=== PATIENT | male | born 1950 | race Caucasian/White ===

== ENCOUNTER 2023-08-13 21:06 | Inpatient (IN) | payer OTHER ==
[~2023-08-13] VITALS: Ht 177.8 cm; Wt 88.5 kg
[2023-08-13 01:35] VITALS: BP 154/56; PULSE 87; RESP 22; TEMP 98; O2SAT 99
[2023-08-13 21:10] VITALS: BP 153/61; PULSE 103; RESP 30; TEMP 98.6; O2SAT 96
[2023-08-13 21:13] VITALS: BP 146/52; PULSE 98; RESP 18; O2SAT 100; O2SAT 99
[2023-08-13 21:43] LABS: BASOPHILS % (AUTO) 0.5 % (0.0-2.0); EOSINOPHILS # (AUTO) 0.2 K/uL (0-0.4); HEMATOCRIT 29.1 % (36-52); HEMOGLOBIN 9.3 g/dL (12.0-18.0); LYMPHOCYTES # (AUTO) 0.4 K/uL (2.0-11.5); LYMPHOCYTES % (AUTO) 6.4 % (20.5-51.1); MEAN CORPUSCULAR HEMOGLOBIN 26 pg (27-31); MEAN CORPUSCULAR HGB CONC 32 g/dL (33-37); MEAN CORPUSCULAR VOLUME 82.9 fL (80-94); MONOCYTES # (AUTO) 0.3 K/uL (0.8-1.0); MONOCYTES % (AUTO) 5.6 % (1.7-9.3); NEUTROPHILS # (AUTO) 5.2 K/uL (1.8-7.7); NEUTROPHILS % (AUTO) 84.5 % (42.2-75.2); PLATELET COUNT (AUTO) 199 K/uL (140-450); RED BLOOD CELL COUNT(AUTO) 3.51 MIL/uL (4.20-6.10); RED CELL DISTRIBUTION WIDTH 20.6 % (11.6-13.7); WHITE BLOOD COUNT (AUTO) 6.2 K/uL (4.8-10.8)
[2023-08-13 21:50] LABS: ANION GAP 16.3 (8-16); CALCIUM 8.8 mg/dL (8.5-10.1); CARBON DIOXIDE 23.9 mmol/L (21-32); CHLORIDE 107 mmol/L (98-107); CREATININE 2.7 mg/dL (0.6-1.3); GLUCOSE 222 mg/dL (74-106); POTASSIUM 4.2 mmol/L (3.5-5.1); SODIUM SERUM 143 mmol/L (136-145)
[2023-08-13 21:52] LABS: UREA NITROGEN, BLOOD 77 mg/dL (7-18)
[2023-08-13 22:03] LABS: ALANINE AMINOTRANSFERASE 172 U/L (12-78); ALBUMIN 2.7 g/dL (3.4-5.0); ALKALINE PHOSPHATASE 119 U/L (50-136); ASPARTATE AMINOTRANSFERASE 60 U/L (15-37); BILIRUBIN,DIRECT 0.5 mg/dL (0.0-0.3); TOTAL BILIRUBIN 1.1 mg/dL (0.0-1.0); TOTAL PROTEIN, SERUM 7.2 g/dL (6.4-8.2)
[2023-08-13 22:22] LABS: FLU A ANTIGEN negative (NEGATIVE); FLU B ANTIGEN NEGATIVE (NEGATIVE)
[2023-08-13 22:54] LABS: BLOOD GAS PCO2 38.3 mmHg (35-45); BLOOD GAS PH 7.417 (7.35-7.45); BLOOD GAS PO2 148.2 mmHg (75-100)
[2023-08-13 22:55] LABS: BLOOD GAS BASE EXCESS -0.3 mmol/L (-2.0-2.0); BLOOD GAS HCO3 24.1 mmol/L (22-26); BLOOD GAS O2 SAT% 99.3 % (92.0-98.5)
[2023-08-13 22:59] VITALS: BP 120/49; PULSE 90; O2SAT 100
[2023-08-13] MEDS ORDERED: KCL 20 MEQ IN 100 mL PREMIX 200 ML IV PRN (23:35)
[2023-08-13] MEDS ORDERED: ACETAMINOPHEN 325 MG TAB PO PRN (23:35)
[2023-08-13] MEDS ORDERED: ONDANSETRON 4 MG/2 ML VIAL IVP PRN (23:35)
[2023-08-13] MEDS: FUROSEMIDE 40 MG/4 ML VIAL IVP SCH (23:49)
[2023-08-14] VITALS (8 sets, daily range): BP systolic 90–120; BP diastolic 41–60; PULSE 60–90; RESP 18–22; TEMP 96.9–98.1; O2SAT 96–99
[2023-08-14] MEDS ORDERED: GABA300C PO (00:39)
[2023-08-14] MEDS ORDERED: NITR0.4T2 SL (00:39)
[2023-08-14] MEDS ORDERED: FAMO-90 PO (00:39)
[2023-08-14] MEDS ORDERED: MELO-176 PO (00:39)
[2023-08-14] MEDS ORDERED: ASCO500T95 PO (00:39)
[2023-08-14] MEDS ORDERED: ACET-5636 PO (00:39)
[2023-08-14] MEDS ORDERED: FERR325E14 PO (00:39)
[2023-08-14] MEDS ORDERED: ATOR40TA PO (00:39)
[2023-08-14] MEDS ORDERED: RANO500T7 PO (00:39)
[2023-08-14] MEDS ORDERED: CYCL-711 PO (00:39)
[2023-08-14] MEDS ORDERED: METO50TE2 PO (00:39)
[2023-08-14] MEDS ORDERED: FURO-570 PO (00:39)
[2023-08-14] MEDS ORDERED: TAMS0.4C96 PO (00:39)
[2023-08-14] MEDS ORDERED: ASPI-1822 PO (00:39)
[2023-08-14] MEDS ORDERED: LACT10SO93 PO (00:39)
[2023-08-14] MEDS ORDERED: POTA10CA PO (00:39)
[2023-08-14] MEDS ORDERED: AMLO5TAB PO (00:39)
[2023-08-14] MEDS ORDERED: FLUO10CA21 PO (00:39)
[2023-08-14 07:09] LABS: BASOPHILS % (AUTO) 0.3 % (0.0-2.0); EOSINOPHILS # (AUTO) 0.1 K/uL (0-0.4); HEMOGLOBIN 8.2 g/dL (12.0-18.0); LYMPHOCYTES # (AUTO) 0.6 K/uL (2.0-11.5); LYMPHOCYTES % (AUTO) 6.4 % (20.5-51.1); MEAN CORPUSCULAR HEMOGLOBIN 26 pg (27-31); MEAN CORPUSCULAR HGB CONC 32 g/dL (33-37); MEAN CORPUSCULAR VOLUME 82.6 fL (80-94); MONOCYTES # (AUTO) 0.6 K/uL (0.8-1.0); MONOCYTES % (AUTO) 6.4 % (1.7-9.3); NEUTROPHILS % (AUTO) 85.9 % (42.2-75.2); PLATELET COUNT (AUTO) 175 K/uL (140-450); RED BLOOD CELL COUNT(AUTO) 3.14 MIL/uL (4.20-6.10); RED CELL DISTRIBUTION WIDTH 20.1 % (11.6-13.7); WHITE BLOOD COUNT (AUTO) 9.4 K/uL (4.8-10.8)
[2023-08-14 07:28] LABS: ANION GAP 13.2 (8-16); CALCIUM 8.7 mg/dL (8.5-10.1); CARBON DIOXIDE 27.6 mmol/L (21-32); CHLORIDE 106 mmol/L (98-107); CREATININE 2.6 mg/dL (0.6-1.3); GLUCOSE 165 mg/dL (74-106); POTASSIUM 3.8 mmol/L (3.5-5.1); SODIUM SERUM 143 mmol/L (136-145)
[2023-08-14 07:30] LABS: UREA NITROGEN, BLOOD 76 mg/dL (7-18)
[2023-08-14] MEDS ORDERED: DEXTROSE 50% 50 ML SYR IVP PRN (08:35)
[2023-08-14] MEDS ORDERED: INSULIN LISPRO SLIDING SCALE 100 UNITS/ML VIAL SUBQ PRN (08:35)
[2023-08-14] MEDS ORDERED: NITROGLYCERIN 0.4 MG TAB SL PRN (08:35)
[2023-08-14] MEDS: FUROSEMIDE 40 MG/4 ML VIAL IVP SCH ×2 (08:44→14:20)
[2023-08-14] MEDS: RANOLAZINE 500 MG TER PO SCH ×2 (09:00→22:15)
[2023-08-14] MEDS: TAMSULOSIN 0.4 MG CAP PO SCH (10:10)
[2023-08-14] MEDS: FERROUS SULFATE 325 MG TABEC PO SCH (10:11)
[2023-08-14] MEDS: amLODIPine 5 MG TAB PO SCH (10:11)
[2023-08-14] MEDS: FLUoxetine 10 MG CAP PO SCH (10:11)
[2023-08-14] MEDS: ASPIRIN 81 MG TAB.CHEW PO SCH (10:11)
[2023-08-14] MEDS: METOPROLOL SUCCINATE 50 MG TABER PO SCH (10:11)
[2023-08-14] MEDS: BLOOD GLUCOSE MONITORING 1 DEV DEV FS SCH (11:52)
[2023-08-14] MEDS: GAUZE TP SCH (13:23)
[2023-08-14] MEDS: HYDROcodone/APAP 5/325 MG 1 TAB TAB PO PRN (14:43)
[2023-08-14] MEDS: ATORVASTATIN 20 MG TAB PO SCH (22:14)
[2023-08-15] VITALS (7 sets, daily range): BP systolic 100–126; BP diastolic 49–62; PULSE 56–89; RESP 18–20; TEMP 97.3–98.6; O2SAT 97–100
[2023-08-15 07:49] LABS: BASOPHILS % (AUTO) 0.5 % (0.0-2.0); EOSINOPHILS # (AUTO) 0.4 K/uL (0-0.4); EOSINOPHILS % (AUTO) 5.6 % (0.0-4.0); HEMOGLOBIN 8.6 g/dL (12.0-18.0); LYMPHOCYTES # (AUTO) 1.1 K/uL (2.0-11.5); LYMPHOCYTES % (AUTO) 13.8 % (20.5-51.1); MEAN CORPUSCULAR HEMOGLOBIN 26 pg (27-31); MEAN CORPUSCULAR HGB CONC 31 g/dL (33-37); MEAN CORPUSCULAR VOLUME 84.6 fL (80-94); MONOCYTES # (AUTO) 0.8 K/uL (0.8-1.0); NEUTROPHILS # (AUTO) 5.6 K/uL (1.8-7.7); NEUTROPHILS % (AUTO) 70.1 % (42.2-75.2); PLATELET COUNT (AUTO) 156 K/uL (140-450); RED BLOOD CELL COUNT(AUTO) 3.31 MIL/uL (4.20-6.10); RED CELL DISTRIBUTION WIDTH 20.5 % (11.6-13.7)
[2023-08-15 07:58] LABS: CARBON DIOXIDE 25.2 mmol/L (21-32); CHLORIDE 105 mmol/L (98-107); CREATININE 2.6 mg/dL (0.6-1.3); GLUCOSE 128 mg/dL (74-106); POTASSIUM 4.2 mmol/L (3.5-5.1); SODIUM SERUM 141 mmol/L (136-145)
[2023-08-15 08:06] LABS: UREA NITROGEN, BLOOD 79 mg/dL (7-18)
[2023-08-16 04:00] VITALS: BP 121/48; PULSE 66; RESP 18; TEMP 96.8; O2SAT 98
[2023-08-16 07:25] LABS: BASOPHILS % (AUTO) 0.6 % (0.0-2.0); EOSINOPHILS # (AUTO) 0.4 K/uL (0-0.4); EOSINOPHILS % (AUTO) 5.2 % (0.0-4.0); HEMATOCRIT 24.8 % (36-52); HEMOGLOBIN 7.8 g/dL (12.0-18.0); LYMPHOCYTES # (AUTO) 0.9 K/uL (2.0-11.5); MEAN CORPUSCULAR HEMOGLOBIN 26 pg (27-31); MEAN CORPUSCULAR HGB CONC 32 g/dL (33-37); MONOCYTES # (AUTO) 0.6 K/uL (0.8-1.0); MONOCYTES % (AUTO) 8.5 % (1.7-9.3); NEUTROPHILS # (AUTO) 5.1 K/uL (1.8-7.7); NEUTROPHILS % (AUTO) 72.7 % (42.2-75.2); PLATELET COUNT (AUTO) 153 K/uL (140-450); RED BLOOD CELL COUNT(AUTO) 3.02 MIL/uL (4.20-6.10)
[2023-08-16 08:00] VITALS: PULSE 79; RESP 18; O2SAT 98
[2023-08-16 08:07] LABS: ANION GAP 12.4 (8-16); CALCIUM 9.1 mg/dL (8.5-10.1); CARBON DIOXIDE 27.2 mmol/L (21-32); CHLORIDE 104 mmol/L (98-107); CREATININE 2.6 mg/dL (0.6-1.3); GLUCOSE 132 mg/dL (74-106); POTASSIUM 3.6 mmol/L (3.5-5.1); SODIUM SERUM 140 mmol/L (136-145)
[2023-08-16 08:11] LABS: UREA NITROGEN, BLOOD 74 mg/dL (7-18)
[2023-08-16 12:14] VITALS: BP 134/55; PULSE 69; RESP 18; TEMP 97.2; O2SAT 100
[2023-08-16 16:46] VITALS: O2SAT 100
[2023-08-16 20:00] VITALS: BP 112/42; PULSE 62; RESP 18; TEMP 97.4; O2SAT 100; O2SAT 98
[2023-08-16 20:20] VITALS: O2SAT 98
[2023-08-17 04:00] VITALS: BP 102/42; PULSE 66; RESP 18; TEMP 98.2; O2SAT 98
[2023-08-17 06:42] LABS: BASOPHILS % (AUTO) 0.5 % (0.0-2.0); EOSINOPHILS # (AUTO) 0.3 K/uL (0-0.4); EOSINOPHILS % (AUTO) 5.2 % (0.0-4.0); HEMOGLOBIN 7.4 g/dL (12.0-18.0); LYMPHOCYTES # (AUTO) 0.6 K/uL (2.0-11.5); LYMPHOCYTES % (AUTO) 12.1 % (20.5-51.1); MEAN CORPUSCULAR HEMOGLOBIN 26 pg (27-31); MEAN CORPUSCULAR HGB CONC 32 g/dL (33-37); MEAN CORPUSCULAR VOLUME 80.9 fL (80-94); MONOCYTES # (AUTO) 0.5 K/uL (0.8-1.0); MONOCYTES % (AUTO) 9.1 % (1.7-9.3); NEUTROPHILS # (AUTO) 3.9 K/uL (1.8-7.7); NEUTROPHILS % (AUTO) 73.1 % (42.2-75.2); PLATELET COUNT (AUTO) 145 K/uL (140-450); RED BLOOD CELL COUNT(AUTO) 2.84 MIL/uL (4.20-6.10); RED CELL DISTRIBUTION WIDTH 19.6 % (11.6-13.7); WHITE BLOOD COUNT (AUTO) 5.4 K/uL (4.8-10.8)
[2023-08-17 06:48] LABS: ANION GAP 13.7 (8-16); CALCIUM 8.7 mg/dL (8.5-10.1); CARBON DIOXIDE 26.7 mmol/L (21-32); CHLORIDE 103 mmol/L (98-107); CREATININE 2.6 mg/dL (0.6-1.3); GLUCOSE 119 mg/dL (74-106); POTASSIUM 3.4 mmol/L (3.5-5.1); SODIUM SERUM 140 mmol/L (136-145)
[2023-08-17 06:50] LABS: UREA NITROGEN, BLOOD 76 mg/dL (7-18)
[2023-08-17 08:00] VITALS: PULSE 62; RESP 18; O2SAT 98
[2023-08-17] MEDS: POTASSIUM CHLORIDE 10 MEQ TABER PO PRN (10:56)
[2023-08-17] MEDS: MORPHINE SULFATE 2 MG/ML SYR IVP PRN (11:03)
[2023-08-17 12:00] VITALS: BP 112/59; PULSE 68; RESP 18; TEMP 97.6; O2SAT 94
[2023-08-17 16:42] VITALS: O2SAT 100
[2023-08-17 20:00] VITALS: BP 103/41; PULSE 61; RESP 18; TEMP 97; O2SAT 100; O2SAT 96
[2023-08-17 20:20] VITALS: O2SAT 100
[2023-08-18 04:00] VITALS: BP 120/64; PULSE 64; PULSE 75; RESP 18; TEMP 98; O2SAT 96
[2023-08-18 07:18] LABS: BASOPHILS % (AUTO) 0.8 % (0.0-2.0); EOSINOPHILS # (AUTO) 0.3 K/uL (0-0.4); EOSINOPHILS % (AUTO) 4.3 % (0.0-4.0); HEMATOCRIT 22.8 % (36-52); HEMOGLOBIN 7.4 g/dL (12.0-18.0); LYMPHOCYTES # (AUTO) 0.8 K/uL (2.0-11.5); LYMPHOCYTES % (AUTO) 13.7 % (20.5-51.1); MEAN CORPUSCULAR HEMOGLOBIN 26 pg (27-31); MEAN CORPUSCULAR HGB CONC 32 g/dL (33-37); MEAN CORPUSCULAR VOLUME 80.1 fL (80-94); MONOCYTES # (AUTO) 0.6 K/uL (0.8-1.0); MONOCYTES % (AUTO) 9.3 % (1.7-9.3); NEUTROPHILS # (AUTO) 4.3 K/uL (1.8-7.7); NEUTROPHILS % (AUTO) 71.9 % (42.2-75.2); PLATELET COUNT (AUTO) 156 K/uL (140-450); RED BLOOD CELL COUNT(AUTO) 2.85 MIL/uL (4.20-6.10); RED CELL DISTRIBUTION WIDTH 19.6 % (11.6-13.7); WHITE BLOOD COUNT (AUTO) 5.9 K/uL (4.8-10.8)
[2023-08-18 08:00] VITALS: PULSE 71; RESP 18; O2SAT 98
[2023-08-18 09:05] LABS: ANION GAP 15.7 (8-16); CALCIUM 8.9 mg/dL (8.5-10.1); CARBON DIOXIDE 24.9 mmol/L (21-32); CHLORIDE 103 mmol/L (98-107); CREATININE 2.4 mg/dL (0.6-1.3); GLUCOSE 121 mg/dL (74-106); POTASSIUM 3.6 mmol/L (3.5-5.1); SODIUM SERUM 140 mmol/L (136-145)
[2023-08-18 09:08] LABS: UREA NITROGEN, BLOOD 73 mg/dL (7-18)
[2023-08-18 12:00] VITALS: BP 148/54; PULSE 71; RESP 18; TEMP 97.1; O2SAT 98
[2023-08-18] MEDS: MAGNESIUM OXIDE 400 MG TAB PO PRN (13:36)
== END 2023-08-18 18:22 | DRG 291 ==
LOC: MED 21:06 → MTU 23:35
PROVIDERS: ADMIT Internal Medicine; ATTEND Internal Medicine
PROC: 5A09357 Assistance with Respiratory Ventilation, Less than 24 Consecutive Hours, Continuous Positive Airway Pressure (ICD-10-PCS; principal; 2023-08-13)
DX: I13.0 Hypertensive heart and chronic kidney disease with heart failure and stage 1 through stage 4 chronic kidney disease, or unspecified chronic kidney disease (principal); I50.23 Acute on chronic systolic (congestive) heart failure; J96.01 Acute respiratory failure with hypoxia; Z20.822 Contact with and (suspected) exposure to COVID-19; I25.10 Atherosclerotic heart disease of native coronary artery without angina pectoris; N18.9 Chronic kidney disease, unspecified; E11.22 Type 2 diabetes mellitus with diabetic chronic kidney disease; E78.5 Hyperlipidemia, unspecified; I25.5 Ischemic cardiomyopathy; Z79.899 Other long term (current) drug therapy
CPT/HCPCS: 36415; 36600; 71045; 80048; 80076; 82803; 82948; 83735; 83880; 84484; 85025; 87081; 93005; 96374; 97116; 97163-GP; 99291; J1644; J1815; J1940; J2270